=== PATIENT | male | born 1940 | race Caucasian/White ===

== ENCOUNTER 2019-05-12 08:55 | Inpatient (IN) | payer MEDICARE ==
[2019-05-06 14:31] LABS: EOSINOPHILS # (AUTO) 0.1 X10'3 (0-0.9); MEAN CORPUSCULAR HGB CONC 34.1 g/dL (33.0-36.5); MEAN PLATELET VOLUME 7.9 FL (7.4-10.4); PRE OP HEMOGLOBIN 16.9 g/dL (14.0-17.9)
[2019-05-06 14:33] LABS: BASOPHILS # (AUTO) 0.1 X10'3 (0-0.2); BASOPHILS % (AUTO) 0.7 % (0-1); EOSINOPHILS % (AUTO) 1.5 % (0-6); LYMPHOCYTES # (AUTO) 2.8 X10'3 (1.1-4.8); LYMPHOCYTES % (AUTO) 34.7 % (21-51); MEAN CORPUSCULAR HEMOGLOBIN 31.8 PG (27.0-31.0); MEAN CORPUSCULAR VOLUME 93.2 FL (78-98); MONOCYTES # (AUTO) 0.9 X10'3 (0-0.9); MONOCYTES % (AUTO) 10.8 % (2-12); NEUTROPHILS # (AUTO) 4.2 X10'3 (1.8-7.7); NEUTROPHILS % (AUTO) 52.3 % (42-75); PRE OP HEMATOCRIT 49.6 % (42.0-52.0); RED BLOOD COUNT 5.32 X10'6 (4.70-6.10); RED CELL DISTRIBUTION WIDTH 14.3 % (11.5-14.5)
[2019-05-06 14:44] LABS: PRE OP INR 1.2 INR; PRE OP PROTIME 12.3 SECONDS (9.0-12.0)
[2019-05-06 14:45] LABS: ALBUMIN 4.2 G/DL (3.4-5.0); ALBUMIN/GLOBULIN RATIO 1.1 (1.1-1.5); ALKALINE PHOSPHATASE 119 IU/L (46-116); BLOOD UREA NITROGEN 15 MG/DL (7-18); BUN/CREATININE RATIO 12.6 (5.4-32.0); CHLORIDE 104 MMOL/L (99-107); CREATININE 1.19 MG/DL (0.60-1.10); PRE OP ALT 37 U/L (30-65); PRE OP ANION GAP 11 (8-16); PRE OP AST 27 U/L (10-37); PRE OP GLUCOSE 104 MG/DL (70-104); PRE OP SODIUM 141 MMOL/L (135-145); TOTAL CARBON DIOXIDE 26.1 MMOL/L (24-32); eGFR 59 ML/MIN
[2019-05-06 14:47] LABS: CLARITY,URINE CLEAR (Clear); COLOR,URINE YELLOW (Yellow); GLUCOSE, URINE NEGATIVE (Neg); KETONES,URINE NEGATIVE (Neg); LEUKOCYTE ESTERASE ,URINE NEGATIVE (Neg); NITRITES, URINE NEGATIVE (Neg); OCCULT BLOOD,URINE NEGATIVE (Neg); PH,URINE 6.5 (4.8-8.0); PROTEIN,URINE NEGATIVE (Neg)
[2019-05-06 14:47] LABS: PRE OP POTASSIUM 3.3 MMOL/L (3.4-5.1)
[2019-05-06 14:57] LABS: PRE OP PLATELET COUNT 274 X10'3 (140-440)
[2019-05-06 14:59] LABS: UA COLLECTION TYPE VOIDED
[~2019-05-12] VITALS: Ht 175.3 cm; Wt 89.0 kg
[2019-05-12] VITALS (18 sets, daily range): BP systolic 102–141; BP diastolic 56–77
[~2019-05-12 08:55] MED LIST: AMLO10TA PO; ATOR-2 PO; CHOL10002 PO; CINN500C16 PO; CLOP75TA15 PO; DOCUMENT DATE & TIME OF BETA-BLOCKER PO ONE; FLUT100D2 INH; LIDOcaine 1% (10mg/ml) 2ml vial ONE; METO-384 PO; PSYL1PAC11 PO; RIVA20TA PO; ceFAZolin 1000mg inj ONE; cefazolin/dext.iso 2gm/50ml 50 ML IV ONE; famotidine 20mg tablet PO ONE; heparin 10,000 units/1 ML INJ ONE; ringers solution, lacted 1,000 ML IV ONE
[2019-05-12] MEDS ORDERED: fentaNYL/PF 50MCG/1 ML 2ML syringe ONE (10:36)
[2019-05-12] MEDS ORDERED: morphine /PF 1mg/ml 10ml inj. ONE (10:36)
[2019-05-12] MEDS ORDERED: MIDAZolam 5mg/5ml vial ONE (10:37)
[2019-05-12] MEDS ORDERED: etomidate 2mg/ml inj. ONE (10:37)
[2019-05-12] MEDS ORDERED: rocuronium 10mg/ml inj IV ONE (10:38)
[2019-05-12 10:43] LABS: PRE OP PARTIAL THROMB. TIME 25 SECONDS (22-32)
[2019-05-12] MEDS ORDERED: sevoflurane 250ml liquid IH ONE (10:47)
[2019-05-12] MEDS ORDERED: albumin (Human) 5% 250ml 250 ML IV ONE (11:27)
[2019-05-12] MEDS ORDERED: phenylephrine 10mg/ml inj. ONE (11:39)
[2019-05-12] MEDS ORDERED: glycopyrrolate 0.2mg/ml inj ONE (11:51)
[2019-05-12] MEDS ORDERED: neostigmine methylsulfate 1 MG/ML 10ml vial ONE (11:51)
[2019-05-12] MEDS ORDERED: ondansetron/PF 4mg/2ml inj ONE (11:52)
[2019-05-12] MEDS ORDERED: dexamethasone sod phosphate 4mg/ml inj. ONE (11:52)
[2019-05-12] MEDS ORDERED: heparin 1,000unit/ml 10ml vial 10 ML ONE (11:53)
[2019-05-12] MEDS ORDERED: ringers solution, lacted 1,000 ML IV SCH (12:03)
[2019-05-12] MEDS ORDERED: ondansetron/PF 4mg/2ml inj IV PRN ×3 (12:05→13:35)
[2019-05-12] MEDS ORDERED: enalaprilat dihydrate 2.5mg/2ml vial IV PRN (12:05)
[2019-05-12] MEDS ORDERED: hydrALAZINE 20mg/ml inj. IV PRN (12:05)
[2019-05-12] MEDS ORDERED: fentaNYL/PF 50MCG/1 ML 2ML syringe IV PRN ×2 (12:05)
[2019-05-12] MEDS ORDERED: morphine 4 MG/ML inj SYRINge IV PRN ×2 (12:05)
[2019-05-12] MEDS ORDERED: diphenhydrAMINE 50 mg/ml inj IV PRN (12:10)
--- NOTE | 2019-05-12 13:35 | NUR ---
Received from OR via ICU BED , accompanied by Anesthesiologist PRESLEY and report given by Anesthesiolgist. PATIENT WITH TRIPLE LUMEN CENTRAL LINE TO RIGHT SIDE OF NECK. 20G PIV IN LEFT UE. ART LINE TO RIGHT UE. SCDS DONNED. LEFT INNER THIGH IS CDI TO DRESSING WELL INGUINAL DRESSING. SPINAL SENSATION LEVEL IS T12 L1. VSS. DENIES PAIN. 10L MASK ON WITH 98% SATURATIONS. Addendum: 05/12/19 at 1406 by Nolan Max RN, RN Amended: Links added.
--- NOTE | 2019-05-12 15:00 | NUR ---
PATIENT ARRIVED ON UNIT, VSS, PULSES PALPABLE IN ALL EXTREMITIES, ALERT AND ORIENTED, NO ACUTE DISTRESS, WILL CONTINUE TO MONITOR.
[2019-05-12] MEDS: ceFAZolin 1GM/D5W- ADD-VANTAGE 50 ML IV SCH (16:51)
--- NOTE | 2019-05-12 18:20 | NUR ---
Problems reprioritized. Patient report given, questions answered & plan of care reviewed with BLAS Choi.
--- NOTE | 2019-05-12 18:30 | NUR ---
Patient in room [facility]. I have received report from CHEVY ODONNELL and had the opportunity to ask questions and assume patient care.
[2019-05-12] MEDS: temazepam 15mg capsule PO PRN (21:36)
[2019-05-12] MEDS: psyllium seed 3.4 gm packet PO SCH (21:45)
[2019-05-12] MEDS: rivaroxaban 20mg tablet PO SCH (21:46)
[2019-05-13] VITALS: BP 119/70
[2019-05-13] MEDS: ceFAZolin 1GM/D5W- ADD-VANTAGE 50 ML IV SCH ×2 (00:21→08:19)
--- NOTE | 2019-05-13 06:30 | NUR ---
Problems reprioritized. Patient report given, questions answered & plan of care reviewed with NAVARRO ODONNELL.
--- NOTE | 2019-05-13 07:00 | NUR ---
Patient in room [facility]. I have received report from Jimbo ODONNELL and had the opportunity to ask questions and assume patient care.
[2019-05-13 07:19] VITALS: BP 133/62
[2019-05-13] MEDS: fluticasone nasal spray 16GM bottle NS SCH (08:00)
[2019-05-13 08:13] VITALS: BP 120/64
[2019-05-13] MEDS: atorvastatin 20mg tablet PO SCH (08:21)
[2019-05-13] MEDS: amLODIPine 5mg tablet PO SCH (08:22)
[2019-05-13] MEDS: metoprolol succinate 25mg (24-HOUR) SR. Tablet PO SCH (08:23)
[2019-05-13] MEDS: vitamin D (cholecalciferol) 1,000 unit tablet PO SCH (08:23)
[2019-05-13] MEDS: clopidogrel 75mg tablet PO SCH (08:23)
[2019-05-13] MEDS ORDERED: oxyCODONE/APAP 10/325mg tablet PO PRN (09:45)
--- NOTE | 2019-05-13 10:34 | NUR ---
Patient stated last BM 05/11/19. I did not see the stool. Addendum: 05/13/19 at 1035 by Cristopher VALENCIA Amended: Links added.
[2019-05-13 11:05] VITALS: BP 117/63
[2019-05-13] MEDS ORDERED: LIDOcaine 2% 10ml TOPICAL JELLY (Urojet) MM ONE (14:35)
--- NOTE | 2019-05-13 18:15 | NUR ---
Problems reprioritized. Patient report given, questions answered & plan of care reviewed with Jimbo ODONNELL.
--- NOTE | 2019-05-13 18:30 | NUR ---
Patient in room [facility]. I have received report from NAVARRO ODONNELL and had the opportunity to ask questions and assume patient care.
[2019-05-13 20:00] VITALS: BP 111/60
[2019-05-13] MEDS: psyllium seed 3.4 gm packet PO SCH (21:00)
[2019-05-13] MEDS: rivaroxaban 20mg tablet PO SCH (21:05)
[2019-05-13] MEDS: temazepam 15mg capsule PO PRN (21:06)
[2019-05-14] VITALS: BP 116/61
--- NOTE | 2019-05-14 06:11 | NUR ---
Problems reprioritized. Patient report given, questions answered & plan of care reviewed with ARIA ODONNELL.
--- NOTE | 2019-05-14 06:35 | NUR ---
Patient in room [facility]. I have received report from SANDY DELGADO RN and had the opportunity to ask questions and assume patient care.
[2019-05-14 07:10] VITALS: BP 137/68
[2019-05-14] MEDS: fluticasone nasal spray 16GM bottle NS SCH (08:00)
[2019-05-14] MEDS: amLODIPine 5mg tablet PO SCH (09:32)
[2019-05-14] MEDS: vitamin D (cholecalciferol) 1,000 unit tablet PO SCH (09:33)
[2019-05-14] MEDS: atorvastatin 20mg tablet PO SCH (09:33)
[2019-05-14] MEDS: clopidogrel 75mg tablet PO SCH (09:33)
[2019-05-14] MEDS: metoprolol succinate 25mg (24-HOUR) SR. Tablet PO SCH (09:33)
[2019-05-14 11:00] VITALS: BP 115/58
== END 2019-05-14 12:16 | disposition home or self-care (01) | DRG 253 ==
LOC: PAS IN 08:55 → EDSTATUS 10:45 → SUR 3N 15:00
PROVIDERS: ADMIT Surgery; ATTEND Surgery
PROC: 04CL0ZZ Extirpation of Matter from Left Femoral Artery, Open Approach (ICD-10-PCS; 2019-05-12)
PROC: 04PY0DZ Removal of Intraluminal Device from Lower Artery, Open Approach (ICD-10-PCS; 2019-05-12)
PROC: 03HY32Z Insertion of Monitoring Device into Upper Artery, Percutaneous Approach (ICD-10-PCS; 2019-05-12)
PROC: 02HV33Z Insertion of Infusion Device into Superior Vena Cava, Percutaneous Approach (ICD-10-PCS; 2019-05-12)
PROC: B548ZZA Ultrasonography of Superior Vena Cava, Guidance (ICD-10-PCS; 2019-05-12)
PROC: 041L0JL Bypass Left Femoral Artery to Popliteal Artery with Synthetic Substitute, Open Approach (ICD-10-PCS; principal; 2019-05-12 10:47)
DX: I70.212 Atherosclerosis of native arteries of extremities with intermittent claudication, left leg (principal); D68.8 Other specified coagulation defects; E78.5 Hyperlipidemia, unspecified; I25.10 Atherosclerotic heart disease of native coronary artery without angina pectoris; I35.9 Nonrheumatic aortic valve disorder, unspecified; I48.91 Unspecified atrial fibrillation; I65.29 Occlusion and stenosis of unspecified carotid artery; I12.9 Hypertensive chronic kidney disease with stage 1 through stage 4 chronic kidney disease, or unspecified chronic kidney disease; N18.9 Chronic kidney disease, unspecified; Z80.0 Family history of malignant neoplasm of digestive organs; Z86.73 Personal history of transient ischemic attack (TIA), and cerebral infarction without residual deficits; Z87.891 Personal history of nicotine dependence; Z98.49 Cataract extraction status, unspecified eye
CPT/HCPCS: 36415; 71045; 71046; 80053; 81003; 82948; 85025; 85610; 85730; 86885; 86900; 86901; 87081; 88300; A4618; A6258; A7000; C1757; C1758; C1768; G0378; J0690; J1100; J1644; J2001; J2250; J2270; J2370; J2405; J2710; J3010; J3490; J7040; J7120; P9045

== ENCOUNTER 2020-02-23 06:29 | Emergency (ER) | payer MEDICARE ==
[~2020-02-23] VITALS: Ht 175.3 cm; Wt 88.6 kg
[~2020-02-23 06:29] MED LIST changes: -DOCUMENT DATE & TIME OF BETA-BLOCKER PO ONE; -LIDOcaine 1% (10mg/ml) 2ml vial ONE; -ceFAZolin 1000mg inj ONE; -cefazolin/dext.iso 2gm/50ml 50 ML IV ONE; -famotidine 20mg tablet PO ONE; -heparin 10,000 units/1 ML INJ ONE; -ringers solution, lacted 1,000 ML IV ONE
[2020-02-23] MEDS ORDERED: heparin 25,000 UNIT/250ml bag 250 ML IV SCH (06:59)
[2020-02-23] MEDS ORDERED: heparin 10,000 units/1 ML INJ IV ONE (07:00)
[2020-02-23] MEDS ORDERED: heparin 10,000 units/1 ML INJ IV PRN (07:00)
[2020-02-23] MEDS ORDERED: heparin 25,000 UNIT/250ml bag 250 ML IV ONE (07:20)
[2020-02-23] MEDS ORDERED: heparin 10,000 units/1 ML INJ ONE (07:20)
--- NOTE | 2020-02-23 07:34 | NUR ---
DR GREEN AT BEDSIDE TO ASSESS PATIENT, PER MD PATIENT TO BE TRANSFERED TO [facility] FOR REMOVAL OF BLOOD CLOT. ALL QUESTIONS AND CONCERNS ADDRESSED BY .
[2020-02-23 07:51] LABS: ALANINE AMINOTRANSFERASE 49 U/L (12-78); ALBUMIN/GLOBULIN RATIO 1.3 (1.1-1.5); ALKALINE PHOSPHATASE 110 IU/L (46-116); ANION GAP 9 (8-16); ASPARTATE AMINO TRANSFERASE 49 U/L (10-37); BILIRUBIN,TOTAL 0.9 MG/DL (0.1-1.0); BLOOD UREA NITROGEN 21 MG/DL (7-18); BUN/CREATININE RATIO 14.2 (5.4-32.0); CALCIUM 9.5 MG/DL (8.5-10.1); CHLORIDE 104 MMOL/L (99-107); CREATININE 1.48 MG/DL (0.60-1.10); GLUCOSE 117 MG/DL (70-104); POTASSIUM 4.6 MMOL/L (3.5-5.1); SODIUM 138 MMOL/L (135-145); TOTAL CARBON DIOXIDE 25.5 MMOL/L (24-32); eGFR 46 ML/MIN
--- NOTE | 2020-02-23 09:03 | NUR ---
PATIENT UPDATED ON TRANSPORTATION STATUS.
--- NOTE | 2020-02-23 09:16 | NUR ---
REPORT GIVEN TO PIPER AT [facility] AT THIS TIME.
--- NOTE | 2020-02-23 10:52 | NUR ---
Bedside report given to flight BLAS Harmon at this time. Patient awake, alert, no signs of distress noted.
[2020-02-23 11:43] VITALS: BP 122/81
== END 2020-02-23 11:51 | disposition short-term general hospital (02) ==
LOC: ER 06:30
DX: M31.4 Aortic arch syndrome [Takayasu] (principal); R53.1 Weakness; R20.0 Anesthesia of skin; I25.10 Atherosclerotic heart disease of native coronary artery without angina pectoris; I10 Essential (primary) hypertension; F17.200 Nicotine dependence, unspecified, uncomplicated; Z86.73 Personal history of transient ischemic attack (TIA), and cerebral infarction without residual deficits; Z72.89 Other problems related to lifestyle; Z79.899 Other long term (current) drug therapy
CPT/HCPCS: 36415; 71045; 80053; 85610; 85730; 86885; 86900; 86901; 93005; 96365; 96376; 99285; J1644; 96375

== ENCOUNTER 2021-02-08 09:04 | Day surgery (SDC) | payer MEDICARE ==
[~2021-02-08] VITALS: Ht 177.8 cm; Wt 90.9 kg
[2021-02-08 09:19] VITALS: BP 125/73
[2021-02-08] MEDS ORDERED: LOSA100T57 PO (09:26)
[2021-02-08] MEDS ORDERED: fentaNYL/PF 50MCG/1 ML 2ML syringe ONE (09:52)
[2021-02-08] MEDS ORDERED: MIDAZolam 1 MG/ML 5ML VIAL ONE (09:52)
[2021-02-08 11:45] VITALS: BP 125/73
[2021-02-08 11:55] VITALS: BP 128/61
[2021-02-08 12:05] VITALS: BP 122/73
[2021-02-08 12:15] VITALS: BP 124/73
== END 2021-02-08 12:15 | disposition home or self-care (01) ==
LOC: GI LAB 09:04
PROVIDERS: ATTEND Internal Medicine Gastroenterology
DX: R19.5 Other fecal abnormalities (principal); K63.5 Polyp of colon; K57.30 Diverticulosis of large intestine without perforation or abscess without bleeding; K64.8 Other hemorrhoids; I48.91 Unspecified atrial fibrillation; I10 Essential (primary) hypertension; Z72.89 Other problems related to lifestyle; Z86.73 Personal history of transient ischemic attack (TIA), and cerebral infarction without residual deficits; Z87.891 Personal history of nicotine dependence; Z95.0 Presence of cardiac pacemaker; Z95.1 Presence of aortocoronary bypass graft; Z79.899 Other long term (current) drug therapy; Z85.46 Personal history of malignant neoplasm of prostate
CPT/HCPCS: 45385; 99153; C1773; G0500; J2250; J3010; J7040; Z7512; 45380; 99152; A4620